=== PATIENT | female | born 1935 | race Caucasian/White ===

== ENCOUNTER 2016-11-05 06:31 | Observation (INO) | payer MEDICARE ==
[~2016-11-05] VITALS: Ht 165.1 cm; Wt 86.2 kg
[~2016-11-05 06:31] MED LIST: ACETAMINOPHEN325 MG PO; ADLT ASA LOW81 MG PO; ADVAIR DISK2 IN; AMLODIPINE PO; ASA OR; ASPIRIN CHEWABL81 MG PO; BACTRIM DS1 TAB PO; BONIVA150 MG OR; BREO ELLIPTA 101 INH PO; CALCIUM + D600 MG PO; CALCIUM600 M2 OR; CIPRO500 MG PO; CIPROFLOXACN500 MG PO; DARVOCET-N 100100 MG OR; DILAUDID2 MG OR; DOCQLACE100 MG PO; EQL STOOL SOFT100 MG PO; FLUOXETINE20 M2 PO; FUROSEMIDE40 MG PO; GLUCOSAMINE1500 COM OR; ISOSORB MONO10 MG PO; LISINOPRIL10 MG PO; LISINOPRIL20 MG PO; MECLIZINE25 M1 PO; MELOXICAM15 MG PO; METFORMIN500 MG PO; METOPROL TAR25 M1 PO; METOPROL TAR25 MG PO; MICARDIS20 MG OR; MOBIC15 MG OR; MUCINEX600 MG PO; MULTI 501 PO; MULTIVITAMI1 OR; NORCO1 TAB PO; PERCOCET 5/325M1 TAB PO; PLAVIX75 MG PO; POT CHLORIDE20 ME3 PO; PRAVACHOL20 MG PO; PRAVASTATIN SOD40 MG PO; PREDNISONE10 MG OR; PREDNISONE2.5 MG PO; PREDNISONE5 MG PO; PROZAC20 MG PO; STOOL SOFTEN240 MG OR; TRAMADOL HCL50 MG PO
--- NOTE | 2016-11-05 06:53 | NUR ---
PATIENT TO ROOM VIA EMS
[2016-11-05 07:43] LABS: HEMATOCRIT 37.8 % (37.0-47.0); HEMOGLOBIN 12.1 g/dl (12.0-16.0); IMMATURE GRANULOCYTES 0.4 % (0.0-1.0); MEAN CELL VOLUME 95.5 fL CALC (80.0-100.0); MEAN CORPUSCULAR HGB 30.6 pG CALC (26.0-32.0); NEUT# 4.36 thou/uL (2.00-7.15); RED BLOOD COUNT 3.96 mill/uL (4.20-5.60); RED CELL DISTRI WIDTH 13.8 % (11.5-15.5)
--- NOTE | 2016-11-05 07:53 | NUR ---
PATIENT RESTING AWAITING LAB AND RADIOLOGY RESULTS. PATIENT DENIES ANY PAIN AT THIS TIME
[2016-11-05 08:02] LABS: ALBUMIN 3.9 g/dL (3.2-5.0); ALKALINE PHOSPHATASE 67 u/l (38-126); ANION GAP 14 (6-22 (CALC)); BILIRUBIN, TOTAL 0.7 mg/dL (0.0-1.4); BUN 18 mg/dL (8-23); BUN/CREATININE RATIO 21 (12-20 (CALC)); CALCIUM 9.3 mg/dL (8.4-10.2); CARBON DIOXIDE 25 mmol/l (22-30); CHLORIDE 105 mmol/l (95-108); CREATININE 0.9 mg/dL (0.5-1.0); GFR 60 ML/MIN (>=60 (CALC)); GFR FOR AFR.AMER. > 60 ML/MIN (>=60 (CALC)); GLUCOSE 104 mg/dL (82-115); POTASSIUM 4.4 mmol/l (3.5-5.1); SGOT/AST 34 u/l (9-36); SGPT/ALT 27 u/l (11-66); SODIUM 140 mmol/l (137-146); TOTAL PROTEIN 7.2 g/dL (6.3-8.2)
[2016-11-05 08:12] LABS: MYOGLOBIN 37 ng/mL (0 - 62)
--- NOTE | 2016-11-05 08:36 | NUR ---
PATIENT RESTING AWAITING RESULTS FROM MD. PATIENT MORE RELAXED AFTER BEING MEDICATED. BEATRIZNET DENIES ANY SOB AT THIS TIME
--- NOTE | 2016-11-05 10:20 | NUR ---
PT AWARE OF XRAY RESULT AND PENDING ADMISSION. PT RESTS IN THE STRETCHER, VISITORS AT BEDSIDE.
--- NOTE | 2016-11-05 12:54 | NUR ---
PT READIED FOR DISPOSITION TO FLOOR. MEAL TRAY PROVIDED.
--- NOTE | 2016-11-05 13:53 | NUR ---
PT CONTINUES TO REST IN THE STRETCHER IN NO DISTRESS, SEEN BY DR COOPER WHILE HERE. NEIGHBOR HAS ALSO VISITED.
--- NOTE | 2016-11-05 14:05 | NUR ---
PT PLACED ON 2 LPM NC PER SATS 94%, IMMEDIATELY UP TO 98%.
--- NOTE | 2016-11-05 14:29 | NUR ---
PT TAKEN TO ROOM 289 WITHOUT INCIDENT, REPORT WAS TO DENA CAMEJO.
--- NOTE | 2016-11-05 14:30 | NUR ---
PT TO ROOM VIA WC ACCOMPANIED BY STAFF; AMBULATORY TO BED STAND BY ASSIST; PT A/O X3; DENIES PAIN OR DISCOMFORT; O2 2L VIA NC; TELE MONITOR IN PLACE; PT STATES WOKE UP OUT OF SLEEP THIS MORNING WITH SHORNTESS OF BREATH AND UNABLE TO CATCH BREATH; PT STATES SHE FEELS BETTER NOW; ORIENTED TO ROOM AND CALL SYSTEM; WILL CONTINUE TO MONITOR.
[2016-11-05 15:15] VITALS: BP 147/72
--- NOTE | 2016-11-05 16:01 | NUR ---
PT TO RADIOLOGY VIA WC ACCOMPANIED BY VOLUNTEER
--- NOTE | 2016-11-05 16:20 | NUR ---
PT RETURN FROM RADIOLOGY VIA WC ACCOMPANIED BY STAFF; AMBULATORY TO CHAIR WITH STAND BY ASSIST; NO COMPLAINTS VOICED; TELE MONITOR IN PLACE; CALL NAVARRETE WITHIN REACH; WILL CONTINUE TO MONITOR.
--- NOTE | 2016-11-05 17:20 | NUR ---
PT SITTING IN CHAIR; VISITOR AT BEDSIDE; DENIES PAIN; CALL NAVARRETE WITHIN REACH; WILL CONTINUE TO MONITOR.
--- NOTE | 2016-11-05 19:18 | NUR ---
BESIDE REPORT RECEIVED FROM NELL FERNANDES. PT SITTING UP IN RECLINER AND DENIES PAIN AT THIS TIME. NO RESPRITORTY DISTRESS NOTED. PLAN OF CARE DISCUSSED. ENROURAGED TO VERBALIZE CONCERNS. STATES UNDERSTANDING. SAFETY MEASURES IN PLACE. CALL LIGHT SYSTEM REVIEWED AND IN REACH.
[2016-11-05 19:19] VITALS: BP 124/65
[2016-11-05 23:27] VITALS: BP 143/64
--- NOTE | 2016-11-06 | NUR ---
PT RESTING IN LEFT SIDE LYING POSITION. C/O HEADAHCE AND DIFFICULTY SLEEPING. TYELNOL GIVEN WITH GOOD EFFECT. NO RESPIRATORY DISTRESS NOTED. O2 IN PLACE VIA NC. EMS SITE TO LAC PATENT AND APPEARS HEALTHY. SAFETY MEASURES IN PLACE. CALL LIGHT WITHIN REACH.
--- NOTE | 2016-11-06 03:55 | NUR ---
PT ASLEEP AT THIS TIME. NO PAIN OR RESPIRATORY DISTRESS NOTED. UP PERIODICALLY TO VOID IN BATHROOM. O2 NC IN PLACE. SAFETY MEASURES IN PLACE. CALL LIGHT WITHIN REACH.
[2016-11-06 03:56] VITALS: BP 156/64
--- NOTE | 2016-11-06 07:15 | NUR ---
BEDSIDE REPROT RECEIVED FROM DYLON BOSTON. PT SLEEPING AT THIS TIME. WILL CONTINUE TO MONITOR.
[2016-11-06 08:15] VITALS: BP 127/55
[2016-11-06 08:18] VITALS: BP 127/55
--- NOTE | 2016-11-06 11:14 | NUR ---
Discharge instructions given. Patient verbalizes understanding of same. Discharged in stable condition via Wheelchair to Home with spouse. All belongings sent with pt.
== END 2016-11-06 11:21 | disposition home or self-care (01) ==
LOC: ENPENDDIS → ED 06:31 → ED-I 10:00 → ED 11:29 → MS2 11:30
PROVIDERS: Emergency Medicine; ADMIT Internal Medicine; ATTEND Internal Medicine
DX: R06.02 Shortness of breath (principal); I25.10 Atherosclerotic heart disease of native coronary artery without angina pectoris; J44.9 Chronic obstructive pulmonary disease, unspecified; E11.9 Type 2 diabetes mellitus without complications; E78.5 Hyperlipidemia, unspecified; I10 Essential (primary) hypertension; J90 Pleural effusion, not elsewhere classified; R11.0 Nausea; Z87.891 Personal history of nicotine dependence; Z95.1 Presence of aortocoronary bypass graft; Z95.5 Presence of coronary angioplasty implant and graft; Z85.118 Personal history of other malignant neoplasm of bronchus and lung; Z86.73 Personal history of transient ischemic attack (TIA), and cerebral infarction without residual deficits; Z79.84 Long term (current) use of oral hypoglycemic drugs; Z95.0 Presence of cardiac pacemaker; Z90.2 Acquired absence of lung [part of]

== ENCOUNTER 2017-08-31 11:42 | Emergency (ER) | payer MEDICARE ==
[~2017-08-31] VITALS: Ht 165.1 cm; Wt 84.0 kg
[2017-08-31] MEDS ORDERED: ULTRAM50 M1 PO (12:43)
[2017-08-31 12:50] VITALS: BP 144/79
== END 2017-08-31 12:50 | disposition home or self-care (01) ==
LOC: ED 11:42
PROC: 2W3DX1Z Immobilization of Left Lower Arm using Splint (ICD-10-PCS; principal; 2017-08-31)
DX: S52.502A Unspecified fracture of the lower end of left radius, initial encounter for closed fracture (principal); W01.0XXA Fall on same level from slipping, tripping and stumbling without subsequent striking against object, initial encounter; Y93.01 Activity, walking, marching and hiking; Y92.009 Unspecified place in unspecified non-institutional (private) residence as the place of occurrence of the external cause

== ENCOUNTER 2017-11-26 04:46 | Observation (INO) | payer MEDICARE ==
[~2017-11-26] VITALS: Ht 165.1 cm; Wt 79.2 kg
[~2017-11-26 04:46] MED LIST changes: +ULTRAM50 M1 PO
[2017-11-26] MEDS ORDERED: LISINOPRIL10 M1 PO (05:22)
[2017-11-26 05:33] LABS: ANION GAP 17 (6-22 (CALC)); BUN 18 mg/dL (8-23); BUN/CREATININE RATIO 24 (12-20 (CALC)); CARBON DIOXIDE 27 mmol/l (22-30); CHLORIDE 103 mmol/l (95-108); CREATININE 0.7 mg/dL (0.5-1.0); GFR > 60 ML/MIN (>=60 (CALC)); GFR FOR AFR.AMER. > 60 ML/MIN (>=60 (CALC)); POTASSIUM 3.9 mmol/l (3.5-5.1); SODIUM 144 mmol/l (137-146)
[2017-11-26 05:40] LABS: HEMATOCRIT 41.9 % (37.0-47.0); HEMOGLOBIN 13.5 g/dl (12.0-16.0); IMMATURE GRANULOCYTES 1.8 % (0.0-1.0); MEAN CELL VOLUME 99.8 fL CALC (80.0-100.0); MEAN CORPUSCULAR HGB 32.1 pG CALC (26.0-32.0); MEAN CORPUSCULAR HGB CONC 32.2 g/L CALC (32.0-36.0); NEUT# 4.48 thou/uL (2.00-7.15); RED BLOOD COUNT 4.2 mill/uL (4.20-5.60); RED CELL DISTRI WIDTH 13.5 % (11.5-15.5)
[2017-11-26 07:55] VITALS: BP 165/71
[2017-11-26 11:09] VITALS: BP 148/53
== END 2017-11-26 15:48 | disposition home or self-care (01) ==
LOC: ED 04:46 → ED-I 06:17 → ED 06:32 → MS2 06:33
PROVIDERS: Family Medicine; ADMIT Internal Medicine; ATTEND Internal Medicine
DX: R55 Syncope and collapse (principal); I12.9 Hypertensive chronic kidney disease with stage 1 through stage 4 chronic kidney disease, or unspecified chronic kidney disease; E11.22 Type 2 diabetes mellitus with diabetic chronic kidney disease; N18.2 Chronic kidney disease, stage 2 (mild); I25.10 Atherosclerotic heart disease of native coronary artery without angina pectoris; E78.5 Hyperlipidemia, unspecified; M15.9 Polyosteoarthritis, unspecified; G47.33 Obstructive sleep apnea (adult) (pediatric); J44.9 Chronic obstructive pulmonary disease, unspecified; I25.2 Old myocardial infarction; Z95.828 Presence of other vascular implants and grafts; Z87.891 Personal history of nicotine dependence; Z95.5 Presence of coronary angioplasty implant and graft; Z85.118 Personal history of other malignant neoplasm of bronchus and lung; Z85.038 Personal history of other malignant neoplasm of large intestine; Z87.440 Personal history of urinary (tract) infections; Z95.0 Presence of cardiac pacemaker; Z86.73 Personal history of transient ischemic attack (TIA), and cerebral infarction without residual deficits

== ENCOUNTER 2018-09-14 19:17 | Emergency (ER) | payer MEDICARE ==
[~2018-09-14] VITALS: Ht 165.1 cm; Wt 79.0 kg
[~2018-09-14 19:17] MED LIST changes: +LISINOPRIL10 M1 PO
[2018-09-14] MEDS ORDERED: TRAMADOL HCL50 MG PO (20:32)
[2018-09-14 20:45] VITALS: BP 138/70
== END 2018-09-14 20:50 | disposition home or self-care (01) ==
LOC: ED 19:17
PROC: 2W3CX1Z Immobilization of Right Lower Arm using Splint (ICD-10-PCS; principal; 2018-09-14)
DX: S52.501A Unspecified fracture of the lower end of right radius, initial encounter for closed fracture (principal); W18.30XA Fall on same level, unspecified, initial encounter; Y92.009 Unspecified place in unspecified non-institutional (private) residence as the place of occurrence of the external cause

== ENCOUNTER → 2018-09-30 | Outpatient (REF) | payer MEDICARE | END | disposition home or self-care (01) | LOC: DI 14:52 | PROVIDERS: ATTEND Orthopaedic Surgery | DX: S52.501D Unspecified fracture of the lower end of right radius, subsequent encounter for closed fracture with routine healing (principal) ==

== ENCOUNTER → 2018-11-01 | Outpatient (REF) | payer MEDICARE | END | disposition home or self-care (01) | LOC: DI 10:19 | PROVIDERS: ATTEND Orthopaedic Surgery | DX: S52.501D Unspecified fracture of the lower end of right radius, subsequent encounter for closed fracture with routine healing (principal) ==

== ENCOUNTER 2018-11-28 01:39 | Emergency (ER) | payer MEDICARE ==
[~2018-11-28] VITALS: Ht 165.1 cm; Wt 79.0 kg
[2018-11-28 02:09] LABS: HEMATOCRIT 42.9 % (37.0-47.0); HEMOGLOBIN 13.1 g/dl (12.0-16.0); IMMATURE GRANULOCYTES 0.5 % (0.0-5.0); MEAN CELL VOLUME 103.1 fL CALC (80.0-100.0); MEAN CORPUSCULAR HGB 31.5 pG CALC (26.0-32.0); MEAN CORPUSCULAR HGB CONC 30.5 g/L CALC (32.0-36.0); RED BLOOD COUNT 4.16 mill/uL (4.20-5.60); RED CELL DISTRI WIDTH 14.3 % (11.5-15.5)
[2018-11-28 02:16] LABS: ALBUMIN 4.1 g/dL (3.2-5.0); ALKALINE PHOSPHATASE 79 u/l (38-126); ANION GAP 22 (6-22 (CALC)); BILIRUBIN, TOTAL 1.1 mg/dL (0.0-1.4); BUN 19 mg/dL (8-23); BUN/CREATININE RATIO 20 (12-20 (CALC)); CARBON DIOXIDE 21 mmol/l (22-30); CHLORIDE 99 mmol/l (95-108); GFR 53 ML/MIN (>=60 (CALC)); GFR FOR AFR.AMER. > 60 ML/MIN (>=60 (CALC)); POTASSIUM 3.9 mmol/l (3.5-5.1); SGOT/AST 27 u/l (9-36); SODIUM 139 mmol/l (137-146)
[2018-11-28 02:25] LABS: D-DIMER 2.14 mg/L (0.19-0.60); PROTHROMBIN TIME 10.3 SECONDS (9.0-12.5)
[2018-11-28 02:28] LABS: MYOGLOBIN 143 ng/mL (0 - 62)
[2018-11-28 02:44] LABS: BAND 20 % (0-8); MANUAL DIFFERENTIAL YES; PLATELET COUNT 213 thou/uL (130-400)
[2018-11-28 02:45] LABS: HYPOCHROMIA FEW; OVALOCYTES FEW; PLATELET ESTIMATE NORMAL
[2018-11-28 04:02] VITALS: BP 97/47
--- NOTE | 2018-11-29 09:48 | NUR ---
Preliminary blood culture results growing 2/2 sets with gram negative rods. Called [facility] and spoke with pt's nurse, Michael, to report preliminary results. Will call back tomorrow with final results.
== END 2018-11-28 04:02 | disposition short-term general hospital (02) ==
LOC: ED 01:39
PROVIDERS: Family Medicine
DX: A41.9 Sepsis, unspecified organism (principal); J18.9 Pneumonia, unspecified organism; R74.8 Abnormal levels of other serum enzymes; J44.0 Chronic obstructive pulmonary disease with (acute) lower respiratory infection; I10 Essential (primary) hypertension; I25.2 Old myocardial infarction; E11.9 Type 2 diabetes mellitus without complications; Z95.5 Presence of coronary angioplasty implant and graft; Z95.0 Presence of cardiac pacemaker; R06.02 Shortness of breath
CPT/HCPCS: J1650